=== PATIENT | female | born 1975 | race Caucasian/White ===

== ENCOUNTER 2016-06-20 11:07 | Emergency (ER) | payer OTHER ==
[2016-06-20 11:33] VITALS: BP 133/86
--- NOTE | 2016-06-21 18:21 | UC ---
Kareem Ramirez Anna[facility]20[facility]16 at 1150 . Back Pain HPI - HPI Summary HPI Summary: MD Note Vital signs stable. Temperature 98.1 Pulse ox 100. 10/10 neck pain. Nondrinker. PPD smoker for 25 years, bipolar. Nurses Note pt fell down onto concrete about 3 weeks ago and has had right sided muscle pain and spasm near crvical neck and shoulder area. pt also c/o numbness and tingling in her fingers. pt also presents with a cyst at the cervical spine she has had for 10 years and now it is beginning to hurt and would like it looked at In Room Note Patient is 40 y/o female coming to [facility] [place] presenting with sudden onset of constant BACK PAIN that began a few weeks ago. She describes the pain as throbbing, pulling, ripping pain. The pain is exacerbated by nodding her head up and down. She has a CYST ON HER NECK that hurts. She also has a SORE FINGER after jamming it in a door. The patient reports that she slipped on concrete steps a few weeks ago, which she believes may have aggravated her back. 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 Onset: sudden Palliative/Provocative: fell on concrete steps Quality: throbbing, pulling, ripping Region: back Severity: moderate Time: constant Associated Sx: neck cyst, sore finger Home Rx: None - History of Current Complaint Chief Complaint: UCBackPain Stated Complaint: CYST/PULLED MUSCLE/PINCHED NERVE Time Seen by Provider: 06/20/16 11:39 Hx Obtained From: Patient, Family/Compositor Apprentice - Accompanied by counselor at [facility] Hx Last Menstrual Period: 06/20/16 Onset/Duration: Lasting Weeks, Still Present Timing: Lasting Weeks Severity Initially: Moderate Severity Currently: Moderate - Allergies/Home Medications Allergies/Adverse Reactions: Allergies Allergy/AdvReac Type Severity Reaction Status Date / Time No Known Allergies Allergy Verified 08/29/14 10:35 Home Medications: Home Medications Atomoxetine(NF) [Strattera] 100 mg PO 06/20/16 [History] Lamotrigine [Lamictal] 150 mg PO 06/20/16 [History] Mirtazapine TAB* [Remeron TAB*] 15 mg PO BEDTIME 06/20/16 [History Confirmed 06/07] Naltrexone (NF) 50 mg 06/20/16 [History] buPROPion TAB* [Wellbutrin TAB*] 100 mg PO TID 06/20/16 [History Confirmed 06/20] cloNIDine TAB* [Catapres TAB*] 0.3 mg PO DAILY 06/20/16 [History Confirmed 06/20] PMH/Surg Hx/FS Hx/Imm Hx Endocrine History Of: Denies: Diabetes, Thyroid Disease Cardiovascular History Of: Denies: Cardiac Disorders, Hypertension, Pacemaker/ICD Respiratory History Of: Denies: COPD, Asthma GI/ History Of: Denies: Gastroesophageal Reflux, Renal Disease Neurological History Of: Denies: CVA, Dementia, Seizures Psychological History Of: Reports: Depression, Bipolar Disorder, Schizophrenia - schizoaffective d/o Other History Of: Negative For: Anticoagulant Therapy - Surgical History Surgical History: None - Family History Known Family History: Positive: Other - FHx Father alcoholism and ADHD. Mother depression and anxiety. - Social History Occupation: Disabled Alcohol Use: None Alcohol Amount: sober since 2011 Substance Use Type: None Substance Use Comment - Amount & Last Used: sober since 2011 Smoking Status (MU): Heavy Every Day Tobacco Smoker Type: Cigarettes Amount Used/How Often: 1/2 ppd Length of Time of Smoking/Using Tobacco: 25 yrs Have You Smoked in the Last Year: Yes Household Exposure Type: Cigarettes - Immunization History Most Recent Influenza Vaccination: N/A Most Recent Tetanus Shot: N/A Most Recent Pneumonia Vaccination: N/A Review of Systems Constitutional: Negative Skin: Other - cyst on neck Eyes: Negative ENT: Negative Respiratory: Negative Cardiovascular: Negative Gastrointestinal: Negative Genitourinary: Negative Motor: Negative Neurovascular: Negative Musculoskeletal: Arthralgia, Myalgia Neurological: Negative Psychological: Negative All Other Systems Reviewed And Are Negative: Yes Physical Exam Triage Information Reviewed: Yes Appearance: Well-Appearing, No Pain Distress, Well-Nourished Vital Signs: Initial Vital Signs Temp 98.1 F 06/20/16 11:27 Pulse 93 06/20/16 11:27 Resp 18 06/20/16 11:27 BP 133/86 06/20/16 11:27 Pulse Ox 100 06/20/16 11:27 Vital Signs Reviewed: Yes Eyes: Positive: Conjunctiva Clear ENT: Positive: Hearing grossly normal, Pharynx normal, TMs normal. Negative: Muffled/hoarse voice Neck: Positive: Supple, No Lymphadenopathy, Other: - 4.0 cm cyst around the level of C7, C8 to the left side of the cervical bones. Mobile and mildly red and tender. Discussed possibility that this is getting infected. Respiratory: Positive: Chest non-tender, Lungs clear, Normal breath sounds, No respiratory distress Cardiovascular: Positive: RRR, No Murmur, Other: - S1, S2 Abdomen Description: Positive: Nontender, No Organomegaly, Soft Bowel Sounds: Positive: Present Musculoskeletal: Positive: Strength Intact, Other: - SAMSON. Upon examination of ring finger right hand, she has 30 degrees of flexion and possible extensor tendon injury. Tender over trapezius muscle going to triceps on the right side. Pain both with palpation and with movement. No limitation of movement, but there is increased pain with movement. Neurological: Positive: Alert Psychological: Positive: Age Appropriate Behavior Skin: Negative: rashes Back Pain Course/Dx - Course Course Of Treatment: I discussed with patient and caregiver three separate conditions: 1.Possible extensor injury to ring finger and need for orthopedic follow up. 2.Strain to right trapezius muscle on posterior thorax and need for physical therapy in order to avoid use of narcotics. 3.A chronic cyst left paraspinal on the posterior neck that is erythematous and tender with a possible inflamed cyst or cellulitis. Dx: 1. Trapezius muscle strain 2. Possible cellulitis or inflamed cyst 3. Possible extensor tendon injury, right ring finger. Patient and caregiver understood and voice understanding and agreement. - Differential Dx/Diagnosis Provider Diagnoses: 1. Trapezius muscle strain 2. Possible cellulitis or inflamed cyst 3. Possible extensor tendon injury, right ring finger Discharge - Discharge Plan Condition: Stable Disposition: HOME Prescriptions: Cephalexin CAP* [Keflex 500 CAP*] 500 mg PO TID #30 cap Cyclobenzaprine TAB* [Flexeril TAB*] 10 mg PO BID #10 tab MDD 2 Ibuprofen TAB* [Motrin TAB* 800 MG] 400 mg PO Q8HR #14 tab Patient Education Materials: Muscle Strain (ED), Cellulitis (ED), Tendon Rupture (ED) Referrals: No Primary Care Phys,NOPCP [Primary Care Provider] - Additional Instructions: WE DISCUSSED: You have a number of conditions: 1. back muscle strain: take ibuprofen and Flexeril; physical therapy. 2. possible infected cyst: take Keflex for 7 days. 3. injury to your ring finger: follow up with orthopedics. Follow up as needed. Watch for any spreading infection, increased redness or pain. PHYSICAL THERAPY REFERRAL: This is your referral to a physical therapist. The physical therapy (PT) will help you recover. +++Reduction of Swelling (EGS, US, ice as needed) +++Pain Reduction (EGS, US, ice as needed) +++[employer] of Mobility -Your diagnosis is: strain/sprain/ RIGHT TRAPEZIUS -Duration of therapy: two weeks or until resolution of condition. -Your physician re-evaluation needs to be arranged by you. The documentation as recorded by the Kareem starr Anna accurately reflects the service I personally performed and the decisions made by me, Sanchez Muse MD.
== END 2016-06-20 12:26 | disposition home or self-care (01) ==
LOC: UCEAST 11:07
DX: S46.811A Strain of other muscles, fascia and tendons at shoulder and upper arm level, right arm, initial encounter (principal); W10.9XXA Fall (on) (from) unspecified stairs and steps, initial encounter; Y93.9 Activity, unspecified; Y92.9 Unspecified place or not applicable; L72.9 Follicular cyst of the skin and subcutaneous tissue, unspecified; F17.210 Nicotine dependence, cigarettes, uncomplicated
CPT/HCPCS: 99212; G0463

== ENCOUNTER 2016-06-25 15:15 | Emergency (ER) | payer OTHER ==
[2016-06-25] MEDS ORDERED: Ketorolac INJ* 60 MG/2 ML VIAL IM ONE (16:22)
[2016-06-25 18:56] VITALS: BP 122/74
--- NOTE | 2016-06-28 15:54 | ED ---
Skin Complaint - HPI Summary HPI Summary: Pt here w/ skin lump w/ pain, swelling and foul smelling d/c. She was seen a few days ago at and rx'd anbx. She has been applying heat and taking anbx but here today because pain and swelling are worse and discharge is concerning. Reports it feels itchy as well. Denies fever, chills, N/V/D. Neck is sore to move where lump is located, but not within neck/joints. - History of Current Complaint Chief Complaint: EDGeneral Time Seen by Provider: 06/25/16 15:49 Stated Complaint: ABSCESS ON NECK Hx Obtained From: Patient Hx Last Menstrual Period: 06/20/16 Pain Intensity: 0 Pain Scale Used: 0-10 Numeric - Allergy/Home Medications Allergies/Adverse Reactions: Allergies Allergy/AdvReac Type Severity Reaction Status Date / Time No Known Allergies Allergy Verified 08/29/14 10:35 PMH/Surg Hx/FS Hx/Imm Hx Previously Healthy: Yes Endocrine/Hematology History: Denies: Hx Anticoagulant Therapy, Hx Diabetes, Hx Thyroid Disease Cardiovascular History: Denies: Hx Hypertension, Hx Pacemaker/ICD Respiratory History: Denies: Hx Asthma, Hx Chronic Obstructive Pulmonary Disease (COPD) History: Denies: Hx Renal Disease Sensory History: Denies: Hx Cataracts, Hx Contacts or Glasses, Hx Eye Injury, Hx Eye Prosthesis, Hx Glaucoma, Hx Macular Degeneration, Hx Vision Problem, Hx Deafness , Hx Hearing Aid, Hx Hearing Problem, Other Sensory Impairments Opthamlomology History: Denies: Hx Cataracts, Hx Contacts or Glasses, Hx Eye Injury, Hx Eye Prosthesis, Hx Glaucoma, Hx Macular Degeneration, Hx Vision Problem, Other Sensory Impairments Neurological History: Denies: Hx Dementia, Hx Seizures Psychiatric History: Reports: Hx Depression, Hx Inpatient Treatment, Hx Community Mental Health Tx, Hx Schizophrenia - schizoaffective d/o, Hx Bipolar Disorder, Hx of Violent Episodes Against Others, Hx Substance Abuse, Other Psychiatric Issues/Disorders Denies: Hx Eating Disorder, Hx Suicide Attempt - Cancer History Hx Chemotherapy: No Hx Radiation Therapy: No - Immunization History Date of Tetanus Vaccine: Unk Date of Influenza Vaccine: Unk Infectious Disease History: No Infectious Disease History: Denies: Hx Clostridium Difficile, Hx Hepatitis, Hx Human Immunodeficiency Virus (HIV), Hx of Known/Suspected MRSA, Hx Shingles, Hx Tuberculosis, Hx Known/ Suspected VRE, Hx Known/Suspected VRSA, History Other Infectious Disease, Traveled Outside the [place] in Last 30 Days - Family History Known Family History: Positive: Other - FHx Father alcoholism and ADHD. Mother depression and anxiety. - Social History Alcohol Use: None Alcohol Amount: sober since 2011 Hx Substance Use: Yes Substance Use Type: Reports: Heroin Substance Use Comment - Amount & Last Used: sober since 2011 Smoking Status (MU): Current Every Day Smoker Type: Cigarettes Amount Used/How Often: 1/2 ppd Length of Time of Smoking/Using Tobacco: 25 yrs Have You Smoked in the Last Year: Yes Review of Systems Negative: Fever, Chills Negative: Chest Pain Negative: Shortness Of Breath Negative: Abdominal Pain, Vomiting, Diarrhea, Nausea Positive: no symptoms reported Negative: Arthralgia, Myalgia Skin: Other - see HPI Negative: Headache, Weakness, Paresthesia, Numbness Positive: Anxious All Other Systems Reviewed And Are Negative: Yes Physical Exam Triage Information Reviewed: Yes Vital Signs On Initial Exam: Initial Vitals Temp Pulse Resp BP Pulse Ox 99.7 F 107 16 132/81 98 06/25/16 15:26 06/25/16 15:26 06/25/16 15:26 06/25/16 15:26 06/25/16 15:26 Vital Signs Reviewed: Yes Appearance: Positive: Well-Appearing, Well-Nourished, Pain Distress Skin: Positive: Warm - 2.5cm diameter x 1cm high area of well defined nickolas erythema with multiple draining and dry pustules within - foul odor - TTP - over posterior cervical region Head/Face: Positive: Normal Head/Face Inspection - NTTP Eyes: Positive: Normal, EOMI, HASMUKH, Conjunctiva Clear. Negative: Conjunctiva Inflammed, Discharge ENT: Positive: Normal ENT inspection, Hearing grossly normal, Pharynx normal. Negative: Nasal congestion, Nasal drainage Neck: Positive: No Lymphadenopathy Respiratory/Lung Sounds: Positive: Clear to Auscultation, Breath Sounds Present Cardiovascular: Positive: Normal, RRR Abdomen Description: Positive: Nontender, Soft Musculoskeletal: Positive: Normal, Strength/ROM Intact Neurological: Positive: Normal, Sensory/Motor Intact, Alert, Oriented to Person Place, Time, CN Intact II-III Psychiatric: Positive: Normal - concerned and in pain but calm, cooperative - Faith Coma Scale Coma Scale Total: 15 Procedures - Incision and Drainage Site: posterior cervical region Anesthesia: Local - lidocaine w/ epi Instrument(s): Scalpel - #11 - 4cc purulent foul smelling d/c w/ some sebaceous and keratin-like material extracted - no nickolas sac ID'd; saline flush s/p drainage Packing: Gauze - packed w/ 1/4" sterile gauze - dressed w/ sterile gauze - pt tolerated well Diagnostics - Vital Signs Vital Signs Temp Pulse Resp BP Pulse Ox 06/25/16 18:55 98.1 F 83 16 122/74 100 06/25/16 17:00 73 111/60 99 06/25/16 16:30 81 115/66 100 06/25/16 16:00 87 106/55 99 06/25/16 15:40 101 98 06/25/16 15:38 122/66 06/25/16 15:26 99.7 F 107 16 132/81 98 - Laboratory Lab Statement: Any lab studies that have been ordered have been reviewed, and results considered in the medical decision making process. Re-Evaluation - Re-Evaluation First Eval Change: Improved - s/p toradol and again after I&D Course/Dx - Diagnoses Provider Diagnoses: Neck abscess Discharge - Discharge Plan Condition: Stable Disposition: HOME Prescriptions: Ibuprofen TAB* [Motrin TAB* 800 MG] 800 mg PO Q8HR PRN #20 tab PRN Reason: Pain Patient Education Materials: Abscess (ED) Referrals: [facility] [place] [facility] [Outside] No Primary Care Phys,NOPCP [Primary Care Provider] - Additional Instructions: Complete bactrim antibiotics per urgent care Keep dressing in place until seen by PCP or urgent care provider tomorrow to have packing changed, wound rechecked You may take ibuprofen with food as needed for pain - alternate with acetaminophen 650mg every 6 hours as needed *If you develop fever, chills, vomiting, neck pain, headache, unstoppable bleeding despite 30 minutes of pressure over wound, return to ED
--- NOTE | 2016-06-28 16:49 | ED ---
Progress - Progress Note Progress Note: Pt's cervical wound cx reveals Finegoldia Magna. She was taking keflex then bactrim. As of 06/27/2016, she was switched to Augmentin. Pt reports she's taking this now and feels much better s/p I&D of posterior cervical abscess. No fever, chills, N/V. Has had one dressing change here and plans to continue wound care as directed. She is aware of danger s/sx of when to return to ED. No further action at this time. Re-Evaluation - Re-Evaluation First Eval Change: Improved - s/p toradol and again after I&D Course/Dx - Diagnoses Provider Diagnoses: Neck abscess
== END 2016-06-25 19:28 | disposition home or self-care (01) ==
LOC: ED 15:15
DX: L02.11 Cutaneous abscess of neck (principal)
CPT/HCPCS: 10060; 87070; 87076; 87205; 87640; 87641; 96372; 99282; J1885

== ENCOUNTER 2016-06-27 15:32 | Emergency (ER) | payer OTHER ==
[2016-06-27 15:36] VITALS: BP 126/82
--- NOTE | 2016-06-27 16:27 | ED ---
ED Suture/Wound Check - HPI Summary HPI Summary: Patient had an abscess drained in this ED two days ago and here for a wound check. She has kept a bandage with antibiotic ointment over the area and is taking her antibiotics as prescribed. She denies fever, chills or increased pain. - History Of Current Complaint Chief Complaint: EDLacSutureRecheck Stated Complaint: ABSCESS Time Seen by Provider: 06/27/16 15:55 Hx Obtained From: Patient Onset/Duration: Gradual Onset Surgical Site: nape of neck Severity: Mild Pain Intensity: 2 Procedure Type: I & D Surgery Date: 06/25/16 - Allergies/Home Medications Allergies/Adverse Reactions: Allergies Allergy/AdvReac Type Severity Reaction Status Date / Time No Known Allergies Allergy Verified 08/29/14 10:35 PMH/Surg Hx/FS Hx/Imm Hx Endocrine/Hematology History: Denies: Hx Anticoagulant Therapy, Hx Diabetes, Hx Thyroid Disease Cardiovascular History: Denies: Hx Hypertension, Hx Pacemaker/ICD Respiratory History: Denies: Hx Asthma, Hx Chronic Obstructive Pulmonary Disease (COPD) History: Denies: Hx Renal Disease Sensory History: Denies: Hx Cataracts, Hx Contacts or Glasses, Hx Eye Injury, Hx Eye Prosthesis, Hx Glaucoma, Hx Macular Degeneration, Hx Vision Problem, Hx Deafness , Hx Hearing Aid, Hx Hearing Problem, Other Sensory Impairments Opthamlomology History: Denies: Hx Cataracts, Hx Contacts or Glasses, Hx Eye Injury, Hx Eye Prosthesis, Hx Glaucoma, Hx Macular Degeneration, Hx Vision Problem, Other Sensory Impairments Neurological History: Denies: Hx Dementia, Hx Seizures Psychiatric History: Reports: Hx Depression, Hx Inpatient Treatment, Hx Community Mental Health Tx, Hx Schizophrenia - schizoaffective d/o, Hx Bipolar Disorder, Hx of Violent Episodes Against Others, Hx Substance Abuse, Other Psychiatric Issues/Disorders Denies: Hx Eating Disorder, Hx Suicide Attempt - Cancer History Hx Chemotherapy: No Hx Radiation Therapy: No - Immunization History Date of Tetanus Vaccine: Unk Date of Influenza Vaccine: Unk Infectious Disease History: No Infectious Disease History: Denies: Hx Clostridium Difficile, Hx Hepatitis, Hx Human Immunodeficiency Virus (HIV), Hx of Known/Suspected MRSA, Hx Shingles, Hx Tuberculosis, Hx Known/ Suspected VRE, Hx Known/Suspected VRSA, History Other Infectious Disease, Traveled Outside the [place] in Last 30 Days - Family History Known Family History: Positive: Other - FHx Father alcoholism and ADHD. Mother depression and anxiety. - Social History Occupation: Unemployed Lives: With Family Alcohol Use: None Alcohol Amount: sober since 2011 Substance Use Type: Reports: None Substance Use Comment - Amount & Last Used: sober since 2011 Smoking Status (MU): Heavy Every Day Tobacco Smoker Type: Cigarettes Amount Used/How Often: 1/2 ppd Length of Time of Smoking/Using Tobacco: 25 yrs Have You Smoked in the Last Year: Yes Cessation Counseling: Patient Advised to Stop Review of Systems Negative: Fever, Chills Positive: Other - .5 cm opening with 2cm erythema without active drainage All Other Systems Reviewed And Are Negative: Yes Physical Exam Triage Information Reviewed: Yes Vital Signs On Initial Exam: Initial Vitals Temp Pulse Resp BP Pulse Ox 98.4 F 99 20 126/82 99 06/27/16 15:33 06/27/16 15:33 06/27/16 15:33 06/27/16 15:33 06/27/16 15:33 Vital Signs Reviewed: Yes Appearance: Positive: Well-Appearing, Well-Nourished, Pain Distress Skin: Positive: Warm, Skin Color Reflects Adequate Perfusion, Dry, Tender, Soft , Erythema @ - .5 cm opening with 2cm erythema without active drainage Head/Face: Positive: Normal Head/Face Inspection Eyes: Positive: EOMI, HASMUKH, Conjunctiva Clear ENT: Positive: Hearing grossly normal Neck: Positive: Supple, Nontender, No Lymphadenopathy Respiratory/Lung Sounds: Positive: Breath Sounds Present Cardiovascular: Positive: RRR Musculoskeletal: Negative: Edema Left, Edema Right Neurological: Positive: Sensory/Motor Intact, Alert, Oriented to Person Place, Time, NV Bundle Intact Distally, Normal Gait Psychiatric: Positive: Affect/Mood Appropriate AVPU Assessment: Alert - Faith Coma Scale Coma Scale Total: 15 Diagnostics - Vital Signs Vital Signs Temp Pulse Resp BP Pulse Ox 06/27/16 15:33 98.4 F 99 20 126/82 99 - Laboratory Lab Statement: Any lab studies that have been ordered have been reviewed, and results considered in the medical decision making process. Course/Dx - Course Course Of Treatment: The packing was removed from the area and redressed with dry clean gauze. She will return for a wound check in 3 days. - Differential Diagnoses Differential Diagnoses: Abscess, Cellulitis, Dehiscence, Healing Wound, Hematoma , Suture Removal, Other - Clinical Impression Provider Diagnoses: Healing wound Discharge - Discharge Plan Condition: Stable Disposition: HOME Prescriptions: Amoxicillin/Clavulanate TAB* [Augmentin TAB 875*] 875 mg PO BID #20 tab diPHENhydraMINE PO* [Benadryl PO 25 MG TAB*] 25 mg PO TID PRN #60 tab PRN Reason: Itching Patient Education Materials: Abscess Incision and Drainage (ED) Referrals: No Primary Care Phys,NOPCP [Primary Care Provider] - [facility] [place] [facility] [Outside] Additional Instructions: Please return to the emergency department or convenient care for a wound check in 3 days. You can keep your wound open to air or covered with clean gauze. Wash daily with warm soapy water (in the shower is okay) and pat dry. Stop taking Keflex and begin using the augmentin, and take until it is completely gone. Return to the emergency department if symptoms worsen.
== END 2016-06-27 16:29 | disposition home or self-care (01) ==
LOC: ED 15:32
DX: L02.11 Cutaneous abscess of neck (principal)
CPT/HCPCS: 99281

== ENCOUNTER 2017-07-10 11:28 | Inpatient (IN) | payer BC ==
[2017-07-10 12:34] LABS: ABS Basophils 0.1 10^3/ul (0-0.2); ABS Eosinophils 0.1 10^3/ul (0-0.6); ABS Lymphocytes 1.3 10^3/ul (1.0-4.8); ABS Monocytes 0.7 10^3/ul (0-0.8); ABS Neutrophils 4.4 10^3/ul (1.5-7.7); ABS Nucleated RBC 0 10^3/ul; Eosinophil % 1.2 % (0-6); Hematocrit 44 % (35-47); Hemoglobin 14.7 g/dl (12.0-16.0); Lymphocyte % 19.8 % (25-47); Mean Corpuscular HGB Conc 33 g/dl (31-36); Mean Corpuscular Hemoglobin 30 pg (27-31); Mean Corpuscular Volume 91 fL (80-97); Mean Platelet Volume 7.6 um3 (7.4-10.4); Nucleated Red Blood Cells % 0; Platelet Count 328 10^3/ul (150-450); Red Blood Count 4.85 10^6/ul (4.0-5.4); Red Cell Distribution Width 14 % (10.5-15); White Blood Count 6.6 10^3/ul (3.5-10.8)
[2017-07-10 12:49] LABS: EGFR Non-African American 67.6 (>60)
[2017-07-10] MEDS ORDERED: Mouth Piece, Nicotine* 1 EACH CARTRIDGE INH ONE (15:50)
[2017-07-10] MEDS ORDERED: Nicotine Inhaler* 10 MG AMP INH ONE (15:50)
[2017-07-10] MEDS ORDERED: Mouth Piece, Nicotine* 1 EACH CARTRIDGE ONE (15:58)
[2017-07-10] MEDS ORDERED: Haloperidol INJ IV/IM* 5 MG/ML AMP IM ONE (18:32)
[2017-07-10] MEDS ORDERED: LORazepam INJ* 2 MG/ML 1 ML VIAL IM ONE (18:32)
[2017-07-10] MEDS ORDERED: diPHENhydraMINE IV* 50 MG/ML 1 ml VIAL (BENADRYL) IM ONE (18:32)
[2017-07-10 20:51] LABS: Urine Appearance Cloudy; Urine Blood 3+ (Negative); Urine Color Yellow; Urine Ketones Negative (Negative); Urine Protein Negative (Negative); Urine Red Blood Cell 3+(>10/hpf) (Absent); Urine Specific Gravity 1.012 (1.010-1.030); Urine Urobilinogen Negative (Negative); Urine White Blood Cell 3+(>20/hpf) (Absent)
--- NOTE | 2017-07-10 22:45 | ED ---
Castro Ramirez Jennifer, scribed for Bill Puckett MD on 07/10/17 at 1211 . Psychiatric Complaint - HPI Summary HPI Summary: The patient is a 41 year old female who was brought 945 to the ED for mental health today. The patient reports her schizophrenia has been acting up with worsening delusions and talking to God. The patient denies drug use and alcohol use. She states she has been to the ED 5 or 6 times before for this. - History Of Current Complaint Chief Complaint: EDMentalHealth Time Seen by Provider: 07/10/17 11:45 Hx Obtained From: Patient Hx Last Menstrual Period: 06/20/16 ?: Yes Onset/Duration: Sudden Onset, Still Present Timing: Frequency Of Episodes Severity Initially: Mild Severity Currently: None Aggravating Factor(s): Nothing Alleviating Factor(s): Nothing Associated Signs And Symptoms: Positive: Hallucinating - Delusions, talking to God Related History: Positive For: Prior Psychiatric Issues Has Suicidal: Denies: Thoughts, With A Plan Has Homicidal: Denies: Thoughts, With A Plan - Allergies/Home Medications Allergies/Adverse Reactions: Allergies Allergy/AdvReac Type Severity Reaction Status Date / Time No Known Allergies Allergy Verified 08/29/14 10:35 Home Medications: Home Medications NK [No Home Medications Reported] 07/10/17 [History Confirmed 07/10/17] PMH/Surg Hx/FS Hx/Imm Hx Endocrine/Hematology History: Denies: Hx Anticoagulant Therapy, Hx Diabetes, Hx Thyroid Disease Cardiovascular History: Denies: Hx Hypertension, Hx Pacemaker/ICD Respiratory History: Denies: Hx Asthma, Hx Chronic Obstructive Pulmonary Disease (COPD) History: Denies: Hx Renal Disease Sensory History: Denies: Hx Cataracts, Hx Contacts or Glasses, Hx Eye Injury, Hx Eye Prosthesis, Hx Glaucoma, Hx Macular Degeneration, Hx Vision Problem, Hx Deafness , Hx Hearing Aid, Hx Hearing Problem, Other Sensory Impairments Opthamlomology History: Denies: Hx Cataracts, Hx Contacts or Glasses, Hx Eye Injury, Hx Eye Prosthesis, Hx Glaucoma, Hx Macular Degeneration, Hx Vision Problem, Other Sensory Impairments Neurological History: Denies: Hx Dementia, Hx Seizures Psychiatric History: Reports: Hx Depression, Hx Inpatient Treatment, Hx Community Mental Health Tx, Hx Schizophrenia - schizoaffective d/o, Hx Bipolar Disorder, Hx of Violent Episodes Against Others, Hx Substance Abuse, Other Psychiatric Issues/Disorders Denies: Hx Eating Disorder, Hx Suicide Attempt - Cancer History Hx Chemotherapy: No Hx Radiation Therapy: No - Immunization History Date of Tetanus Vaccine: Unk Date of Influenza Vaccine: Unk Infectious Disease History: No Infectious Disease History: Denies: Hx Clostridium Difficile, Hx Hepatitis, Hx Human Immunodeficiency Virus (HIV), Hx of Known/Suspected MRSA, Hx Shingles, Hx Tuberculosis, Hx Known/ Suspected VRE, Hx Known/Suspected VRSA, History Other Infectious Disease, Traveled Outside the [place] in Last 30 Days - Family History Known Family History: Positive: Other - FHx Father alcoholism and ADHD. Mother depression and anxiety. - Social History Alcohol Use: None Alcohol Amount: sober since 2011 Substance Use Type: Reports: None Substance Use Comment - Amount & Last Used: sober since 2011 Smoking Status (MU): Heavy Every Day Tobacco Smoker Type: Cigarettes Amount Used/How Often: 1/2 ppd Length of Time of Smoking/Using Tobacco: 25 yrs Have You Smoked in the Last Year: Yes Review of Systems Negative: Fever Positive: Other - Delusions, "talking to God" All Other Systems Reviewed And Are Negative: Yes Physical Exam - Summary Physical Exam Summary: General: well-appearing, no pain distress Skin: warm, color reflects adequate perfusion, dry Head: normal Eyes: EOMI, HASMUKH ENT: normal Neck: supple, nontender Respiratory: CTA, breath sounds present Cardiovascular: RRR Abdomen: soft, nontender Bowel: present Musculoskeletal: normal, strength/ROM intact Neurological: normal, sensory/motor intact, A&O x3 Psychological: affect/mood appropriate Triage Information Reviewed: Yes Vital Signs On Initial Exam: Initial Vitals Temp Pulse Resp BP Pulse Ox 98.4 F 105 18 121/67 99 07/10/17 11:35 07/10/17 11:35 07/10/17 11:35 07/10/17 11:35 07/10/17 11:35 Vital Signs Reviewed: Yes Diagnostics - Vital Signs Vital Signs Temp Pulse Resp BP Pulse Ox 07/10/17 11:35 98.4 F 105 18 121/67 99 - Laboratory Lab Results: Lab Results 07/10/17 07/10/17 07/10/17 Range/Units 12:19 12:19 20:38 WBC 6.6 (3.5-10.8) 10^3/ul RBC 4.85 (4.0-5.4) 10^6/ul Hgb 14.7 (12.0-16.0) g/dl Hct 44 (35-47) % MCV 91 (80-97) fL MCH 30 (27-31) pg MCHC 33 (31-36) g/dl RDW 14 (10.5-15) % Plt Count 328 (150-450) 10^3/ul MPV 7.6 (7.4-10.4) um3 Neut % (Auto) 67.3 (38-83) % Lymph % (Auto) 19.8 L (25-47) % Bledsoe % (Auto) 10.8 H (0-7) % Eos % (Auto) 1.2 (0-6) % Baso % (Auto) 0.9 (0-2) % Absolute Neuts (auto) 4.4 (1.5-7.7) 10^3/ul Absolute Lymphs (auto) 1.3 (1.0-4.8) 10^3/ul Absolute Monos (auto) 0.7 (0-0.8) 10^3/ul Absolute Eos (auto) 0.1 (0-0.6) 10^3/ul Absolute Basos (auto) 0.1 (0-0.2) 10^3/ul Absolute Nucleated RBC 0 10^3/ul Nucleated RBC % 0 Sodium 139 (133-145) mmol/L Potassium 3.9 (3.5-5.0) mmol/L Chloride 104 (101-111) mmol/L Carbon Dioxide 30 (22-32) mmol/L Anion Gap 5 (2-11) mmol/L BUN 5 L (6-24) mg/dL Creatinine 0.92 (0.51-0.95) mg/dL Est GFR ( Amer) 86.9 (>60) Est GFR (Non-Af Amer) 67.6 (>60) BUN/Creatinine Ratio 5.4 L (8-20) Glucose 89 (70-100) mg/dL Calcium 9.4 (8.6-10.3) mg/dL Total Bilirubin 0.40 (0.2-1.0) mg/dL AST 13 (13-39) U/L ALT 12 (7-52) U/L Alkaline Phosphatase 56 (34-104) U/L Total Protein 6.8 (6.4-8.9) g/dL Albumin 4.3 (3.2-5.2) g/dL Globulin 2.5 (2-4) g/dL Albumin/Globulin Ratio 1.7 (1-3) TSH 1.69 (0.34-5.60) mcIU/mL Beta HCG, Quant Pending Urine Color Urine Appearance Urine pH (5-9) Ur Specific Moneta (1.010-1.030) Urine Protein (Negative) Urine Ketones (Negative) Urine Blood (Negative) Urine Nitrate (Negative) Urine Bilirubin (Negative) Urine Urobilinogen (Negative) Ur Leukocyte Esterase (Negative) Urine WBC (Auto) (Absent) Urine RBC (Auto) (Absent) Ur Squamous Epith Cells (Absent) Urine Bacteria (Absent) Urine Glucose (Negative) Salicylates < 2.50 (<30) mg/dL Urine Opiates Screen None detected (None Detect) Acetaminophen < 15 mcg/mL Ur Barbiturates Screen None detected (None Detect) Ur Phencyclidine Scrn None detected (None Detect) Ur Amphetamines Screen None detected (None Detect) U Benzodiazepines Scrn None detected (None Detect) Urine Cocaine Screen None detected (None Detect) U Cannabinoids Screen None detected (None Detect) Serum Alcohol < 10 (<10) mg/dL 07/10/17 Range/Units 20:38 WBC (3.5-10.8) 10^3/ul RBC (4.0-5.4) 10^6/ul Hgb (12.0-16.0) g/dl Hct (35-47) % MCV (80-97) fL MCH (27-31) pg MCHC (31-36) g/dl RDW (10.5-15) % Plt Count (150-450) 10^3/ul MPV (7.4-10.4) um3 Neut % (Auto) (38-83) % Lymph % (Auto) (25-47) % Bledsoe % (Auto) (0-7) % Eos % (Auto) (0-6) % Baso % (Auto) (0-2) % Absolute Neuts (auto) (1.5-7.7) 10^3/ul Absolute Lymphs (auto) (1.0-4.8) 10^3/ul Absolute Monos (auto) (0-0.8) 10^3/ul Absolute Eos (auto) (0-0.6) 10^3/ul Absolute Basos (auto) (0-0.2) 10^3/ul Absolute Nucleated RBC 10^3/ul Nucleated RBC % Sodium (133-145) mmol/L Potassium (3.5-5.0) mmol/L Chloride (101-111) mmol/L Carbon Dioxide (22-32) mmol/L Anion Gap (2-11) mmol/L BUN (6-24) mg/dL Creatinine (0.51-0.95) mg/dL Est GFR ( Amer) (>60) Est GFR (Non-Af Amer) (>60) BUN/Creatinine Ratio (8-20) Glucose (70-100) mg/dL Calcium (8.6-10.3) mg/dL Total Bilirubin (0.2-1.0) mg/dL AST (13-39) U/L ALT (7-52) U/L Alkaline Phosphatase (34-104) U/L Total Protein (6.4-8.9) g/dL Albumin (3.2-5.2) g/dL Globulin (2-4) g/dL Albumin/Globulin Ratio (1-3) TSH (0.34-5.60) mcIU/mL Beta HCG, Quant Urine Color Yellow Urine Appearance Cloudy Urine pH 8.0 (5-9) Ur Specific Moneta 1.012 (1.010-1.030) Urine Protein Negative (Negative) Urine Ketones Negative (Negative) Urine Blood 3+ A (Negative) Urine Nitrate Negative (Negative) Urine Bilirubin Negative (Negative) Urine Urobilinogen Negative (Negative) Ur Leukocyte Esterase Trace A (Negative) Urine WBC (Auto) 3+(>20/hpf) A (Absent) Urine RBC (Auto) 3+(>10/hpf) A (Absent) Ur Squamous Epith Cells Present A (Absent) Urine Bacteria Absent (Absent) Urine Glucose Negative (Negative) Salicylates (<30) mg/dL Urine Opiates Screen (None Detect) Acetaminophen mcg/mL Ur Barbiturates Screen (None Detect) Ur Phencyclidine Scrn (None Detect) Ur Amphetamines Screen (None Detect) U Benzodiazepines Scrn (None Detect) Urine Cocaine Screen (None Detect) U Cannabinoids Screen (None Detect) Serum Alcohol (<10) mg/dL Result Diagrams: 07/10/17 12:19 07/10/17 12:19 Lab Statement: Any lab studies that have been ordered have been reviewed, and results considered in the medical decision making process. Course/Dx - Course Course Of Treatment: FINAL DISPOSITION PENDING AT SHIFT CHANGE. SIGNED OUT TO DR CHILDRESS. - Differential Dx/Clinical Impression Provider Diagnosis: Mental health problem Discharge - Sign-Out/Discharge Documenting (check all that apply): Sign-Out Patient Signing out patient TO: Kaushik Childress - pending mental health evaluation - Discharge Plan Referrals: No Primary Care Phys,NOPCP [Primary Care Provider] - The documentation as recorded by the Castro starr Jennifer accurately reflects the service I personally performed and the decisions made by me, Bill Puckett MD.
[2017-07-11] MEDS ORDERED: Acetaminophen TAB* 325 MG PO PRN (01:54)
[2017-07-11] MEDS ORDERED: Al Hydrox/Mg Hydrox/Simet LIQ* 30 ML UDC PO PRN (01:54)
[2017-07-11] MEDS: Vitamin THERAPEUTIC TAB PO SCH (09:37)
[2017-07-11] MEDS: Nicotine Inhaler* 10 MG AMP INH PRN ×2 (11:51→19:47)
[2017-07-11] MEDS: Mouth Piece, Nicotine* 1 EACH CARTRIDGE INH SCH (11:51)
[2017-07-11] MEDS ORDERED: ARIPIPRAZOLE 300 MG IM SCH (15:00)
[2017-07-11] MEDS ORDERED: [UNRECOGNIZED DRUG - OTHER] IM SCH (16:00)
[2017-07-11] MEDS: ARIPiprazole TAB* 5 MG PO SCH (16:47)
[2017-07-11] MEDS: Nicotine PATCH 21 MG/24 HR* PATCH TRANSDERM SCH (16:52)
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
[2017-07-11] MEDS: Sulfamethox/Trimethoprim DS 800/160* TAB PO SCH (21:27)
[2017-07-11] MEDS: Divalproex ER TAB(*) 500 MG PO SCH (21:27)
[2017-07-11] MEDS: Nicotine Patch Removal NOTE PATCH OFF SCH (21:53)
[2017-07-11] MEDS ORDERED: chlorproMAZINE TAB* 50 MG PO ONE (22:00)
[2017-07-12] MEDS: LORazepam TAB(*) 1 MG PO PRN ×2 (03:15→17:30)
[2017-07-12] MEDS: Haloperidol TAB* 5 MG PO PRN (03:15)
[2017-07-12] MEDS: Nicotine PATCH 21 MG/24 HR* PATCH TRANSDERM SCH (10:41)
[2017-07-12] MEDS: Sulfamethox/Trimethoprim DS 800/160* TAB PO SCH ×2 (10:41→21:25)
[2017-07-12] MEDS: Vitamin THERAPEUTIC TAB PO SCH (10:41)
[2017-07-12] MEDS: ARIPiprazole TAB* 5 MG PO SCH (10:41)
[2017-07-12] MEDS: Nicotine Inhaler* 10 MG AMP INH PRN ×2 (10:44→17:30)
--- NOTE | 2017-07-12 12:02 | PN ---
Subjective - Subjective Date of Service: 07/12/17 Service Type: 04223 Hosp care 25 min moderate complexity Subjective: This 41 y/o WF with long h/o mental illness and noncomplience with treatments admitted on [facility] due to acute irritable-manic and psychotic behavior in the community. On the unit she continues to be psychotic with alevism themes, extremely hostile, threatening towards her peers, shouting at staffs, demanding to be discharged back to her home when she is homeless and uses frequent profanity( F words). She required stat meds over her routine PRNs. Very difficult to engage in any meaningful conversations. Objective - Appearance Appearance: Healthy Appearing Dysmorphic Features: No Hygiene: Mal-odorous Grooming: Disheveled - Behavior Psychomotor Activities: Abnormal-Increased Exhibits Abnormal Movement: No - Attitude and Relatedness Attitude and Relatedness: Hostile Eye Contact: Poor - Speech Quality: Pressured Latencies: Short Quantity: Copious - Mood Patient's Decription of Mood: "Angry" - Affect Observed Affect: Tense Affect Consistent with: Dysphoria - Thought Process Patient's Thought Process: Disorganized, Loose Associations, Filght of Ideas Thought Content: Yes Paranoid Ideation, No Passive Wish, No Suicidal Planning, No Homicidal Ideation - Sensorium Experiencing Hallucinations: No, Sensorium is Clear Type of Hallucinations: Visual: No, Auditory: No, Command: No - Level of Consciousness Level of Consciousness: Alert Orientation: Yes Orientated to Place, Yes Orientated to Person, No Orientated to Time - Impulse Control Impulse Control: Impaired - Insight and Judgement Insight and Judgement: Impaired - Group Participation Particating in Group Activities: No - Medication Management Medication Management Adherence: Yes Assessment - Assessment Merits Inpatient Hospitalization: For Immediate Safety, For Stabilization Clinical Impression: 41 y/o WF acutely manic and psychotic. Plan - Plan Treatment Plan: Name: SHIRLEY PERALTA Birthdate: 1975 [id number] Continued Medication Management: Continue Outpt Medication Medications: Current Medications Acetaminophen (Tylenol Tab*) 650 mg PO Q4H PRN PRN Reason: PAIN or TEMP > 101 F Last Admin: 07/11/17 19:47 Dose: 650 mg Al Hydrox/Mg Hydrox/Simethicone (Maalox Plus*) 30 ml PO Q4H PRN PRN Reason: INDIGESTION Aripiprazole (Abilify Tab*) 5 mg PO DAILY [facility] Last Admin: 07/12/17 10:41 Dose: 5 mg Aripiprazole (Abilify Maintena (Nf)) 400 mg IM Q28D [facility] Last Admin: 07/11/17 17:02 Dose: 400 mg Device (Nicotine Mouth Piece*) 1 each INH .CARTRIDGE [facility] Last Admin: 07/11/17 11:51 Dose: 1 each Divalproex Sodium (Depakote Er Tab(*)) 1,000 mg PO BEDTIME [facility] Last Admin: 07/11/17 21:27 Dose: 1,000 mg Haloperidol (Haldol Tab*) 5 mg PO Q4H PRN PRN Reason: AGITATION Last Admin: 07/12/17 03:15 Dose: 5 mg Lorazepam (Ativan Tab(*)) 2 mg PO Q4H PRN PRN Reason: AGITATION Last Admin: 07/12/17 03:15 Dose: 2 mg Multivitamins (Theragran Tab*) 1 tab PO DAILY [facility] Last Admin: 07/12/17 10:41 Dose: 1 tab Nicotine (Nicotine Inhaler*) 10 mg INH Q2H PRN PRN Reason: CRAVING Last Admin: 07/12/17 10:44 Dose: 10 mg Nicotine (Nicotine Patch 21 Mg/24 Hr*) 1 patch TRANSDERM DAILY [facility] Last Admin: 07/12/17 10:41 Dose: 1 patch Nicotine Polacrilex (Nicotine Gum*) 2 mg PO Q2H PRN PRN Reason: CRAVING Pharmacy Profile Note (Nicotine Patch Removal Note*) 1 note PATCH OFF 2100 [facility] Last Admin: 07/11/17 21:53 Dose: 1 note Trimethoprim/Sulfamethoxazole (Bactrim Ds 800/160 Tab*) 1 tab PO BID [facility] Last Admin: 07/12/17 10:41 Dose: 1 tab - Discharge Plan Discharge Plan: Outpatient Follow Up Outpatient Program: [facility]
[2017-07-12] MEDS: Nicotine GUM* 2 MG PO PRN (17:30)
[2017-07-12] MEDS: Divalproex ER TAB(*) 500 MG PO SCH (21:26)
[2017-07-12] MEDS: Nicotine Patch Removal NOTE PATCH OFF SCH (21:31)
[2017-07-13] MEDS: Sulfamethox/Trimethoprim DS 800/160* TAB PO SCH ×2 (10:29→21:30)
[2017-07-13] MEDS: ARIPiprazole TAB* 5 MG PO SCH (10:29)
[2017-07-13] MEDS: Vitamin THERAPEUTIC TAB PO SCH (10:29)
[2017-07-13] MEDS: Nicotine PATCH 21 MG/24 HR* PATCH TRANSDERM SCH (10:30)
[2017-07-13] MEDS: Nicotine Inhaler* 10 MG AMP INH PRN ×2 (10:30→16:21)
[2017-07-13] MEDS: Mouth Piece, Nicotine* 1 EACH CARTRIDGE INH SCH (10:32)
[2017-07-13] MEDS: Haloperidol TAB* 5 MG PO PRN (15:04)
[2017-07-13] MEDS: LORazepam TAB(*) 1 MG PO PRN (15:05)
[2017-07-13] MEDS: Nicotine GUM* 2 MG PO PRN (16:21)
[2017-07-13] MEDS: Divalproex ER TAB(*) 500 MG PO SCH (21:30)
[2017-07-13] MEDS: Nicotine Patch Removal NOTE PATCH OFF SCH (21:31)
[2017-07-14] MEDS: Sulfamethox/Trimethoprim DS 800/160* TAB PO SCH ×2 (08:51→21:10)
[2017-07-14] MEDS: Nicotine PATCH 21 MG/24 HR* PATCH TRANSDERM SCH (08:52)
[2017-07-14] MEDS: Vitamin THERAPEUTIC TAB PO SCH (08:52)
[2017-07-14] MEDS: ARIPiprazole TAB* 5 MG PO SCH (08:52)
[2017-07-14] MEDS: Nicotine Inhaler* 10 MG AMP INH PRN ×2 (08:54→21:21)
[2017-07-14] MEDS ORDERED: Ibuprofen TAB* 600 MG PO PRN (11:09)
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
[2017-07-14] MEDS: Haloperidol TAB* 5 MG PO PRN (18:09)
[2017-07-14] MEDS: LORazepam TAB(*) 1 MG PO PRN (18:09)
[2017-07-14] MEDS ORDERED: Haloperidol INJ IV/IM* 5 MG/ML AMP IM ONE (19:18)
[2017-07-14] MEDS ORDERED: LORazepam INJ* 2 MG/ML 1 ML VIAL ONE ×2 (19:18→19:23)
[2017-07-14] MEDS ORDERED: Haloperidol INJ IV/IM* 5 MG/ML AMP ONE ×2 (19:18→19:23)
[2017-07-14] MEDS ORDERED: LORazepam INJ* 2 MG/ML 1 ML VIAL IM ONE (19:18)
[2017-07-14] MEDS ORDERED: Benztropine INJ* 1 MG/ML 2 ML AMP ONE ×2 (19:19→19:24)
[2017-07-14] MEDS ORDERED: Benztropine INJ* 1 MG/ML 2 ML AMP IM ONE (19:19)
[2017-07-14] MEDS: lamoTRIgine TAB(*) 25 MG PO SCH (21:10)
[2017-07-14] MEDS: Divalproex ER TAB(*) 500 MG PO SCH (21:10)
[2017-07-14] MEDS: Nicotine Patch Removal NOTE PATCH OFF SCH (21:24)
[2017-07-15] MEDS ORDERED: Mouth Piece, Nicotine* 1 EACH CARTRIDGE ONE (05:20)
[2017-07-15] MEDS: Mouth Piece, Nicotine* 1 EACH CARTRIDGE INH SCH (05:22)
[2017-07-15] MEDS: Nicotine Inhaler* 10 MG AMP INH PRN ×3 (05:22→19:40)
[2017-07-15] MEDS: Nicotine PATCH 21 MG/24 HR* PATCH TRANSDERM SCH ×2 (06:16→08:29)
[2017-07-15] MEDS: Vitamin THERAPEUTIC TAB PO SCH ×2 (06:16→08:29)
[2017-07-15] MEDS: ARIPiprazole TAB* 5 MG PO SCH ×2 (06:16→08:29)
[2017-07-15] MEDS: Sulfamethox/Trimethoprim DS 800/160* TAB PO SCH ×3 (06:16→21:20)
[2017-07-15] MEDS: Nicotine GUM* 2 MG PO PRN ×2 (15:28→19:40)
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
[2017-07-15] MEDS: LORazepam TAB(*) 1 MG PO PRN (19:40)
[2017-07-15] MEDS ORDERED: Benztropine TAB* 1 MG ONE (19:46)
[2017-07-15] MEDS: Divalproex ER TAB(*) 500 MG PO SCH (21:20)
[2017-07-15] MEDS: lamoTRIgine TAB(*) 25 MG PO SCH (21:20)
[2017-07-15] MEDS: Haloperidol TAB* 5 MG PO PRN (21:24)
[2017-07-15] MEDS: Nicotine Patch Removal NOTE PATCH OFF SCH (21:44)
[2017-07-16] MEDS: Nicotine GUM* 2 MG PO PRN (01:05)
[2017-07-16] MEDS: Nicotine Inhaler* 10 MG AMP INH PRN (01:05)
[2017-07-16] MEDS: ARIPiprazole TAB* 5 MG PO SCH (08:35)
[2017-07-16] MEDS: Nicotine PATCH 21 MG/24 HR* PATCH TRANSDERM SCH (08:35)
[2017-07-16] MEDS: Sulfamethox/Trimethoprim DS 800/160* TAB PO SCH ×2 (08:36→20:34)
[2017-07-16] MEDS: Vitamin THERAPEUTIC TAB PO SCH (08:36)
[2017-07-16] MEDS: LORazepam TAB(*) 1 MG PO PRN ×2 (12:42→18:06)
--- NOTE | 2017-07-16 15:10 | PN ---
Subjective - Subjective Service Type: 64991 Hosp care 15 min low complexity Subjective: Patient met with ACT this morning. She is agreeable to remain on [facility] for stabilization. She is calm and in behavioral control. Patient reports some insight into delusional statements made in the past few days. Patient has been medication and group compliant. She requests 30min observation and use of comfort room. Patient informed that treatment team will discuss in AM. Objective - Appearance Appearance: Thin Framed Dysmorphic Features: No Hygiene: Normal Grooming: Fairly Well Kept - Behavior Psychomotor Activities: Normal Exhibits Abnormal Movement: No - Attitude and Relatedness Attitude and Relatedness: Cooperative Eye Contact: Good - Speech Quality: Unpressured Latencies: Normal Quantity: Appropriate - Mood Patient's Decription of Mood: "Good" - Affect Observed Affect: Non-labile Affect Consistent with: Euthymia - Thought Process Patient's Thought Process: Coherent, Goal Directed Thought Content: No Passive Wish, No Suicidal Planning, No Homicidal Ideation, No Paranoid Ideation - Sensorium Experiencing Hallucinations: No, Sensorium is Clear Type of Hallucinations: Visual: No, Auditory: No, Command: No - Level of Consciousness Level of Consciousness: Alert Orientation: Yes Intact, Yes Orientated to Time, Yes Orientated to Place, Yes Orientated to Person - Impulse Control Impulse Control: Tenuous - Insight and Judgement Insight and Judgement: Fair - Group Participation Particating in Group Activities: Yes - Medication Management Medication Management Adherence: Yes Assessment - Assessment Merits Inpatient Hospitalization: For Immediate Safety, For Stabilization, Consolidate Improvements, Pending Safe DC Plan Inpatient DSM-V Dx: F25.0 Clinical Impression: 41yo white female with history of schizoaffective d/o and polysubstance use. She presented to ED in agitated and psychotic state and demanding aripiprazole maintenna injection. She continues to present as manic. She merits hospitalization for immediate safety and stabilization. Plan - Plan Treatment Plan: Name: SHIRLEY PERALTA Birthdate: 1975 [id number] continue acute intensive psychiatric treatment. received abilify maintenna on ; continue po aripiprazole [id number]. Continue depakote and repeat V.A. level on 07/17. discharge planning to include case management and ACT team. Continued Medication Management: Start Medication Medications: Current Medications Acetaminophen (Tylenol Tab*) 650 mg PO Q4H PRN PRN Reason: PAIN or TEMP > 101 F Last Admin: 07/11/17 19:47 Dose: 650 mg Al Hydrox/Mg Hydrox/Simethicone (Maalox Plus*) 30 ml PO Q4H PRN PRN Reason: INDIGESTION Aripiprazole (Abilify Maintena (Nf)) 400 mg IM Q28D [facility] Last Admin: 07/11/17 17:02 Dose: 400 mg Aripiprazole (Abilify Tab*) 10 mg PO DAILY [facility] Last Admin: 07/16/17 08:35 Dose: 10 mg Device (Nicotine Mouth Piece*) 1 each INH .CARTRIDGE [facility] Last Admin: 07/15/17 05:22 Dose: 1 each Divalproex Sodium (Depakote Er Tab(*)) 1,500 mg PO BEDTIME [facility] Last Admin: 07/15/17 21:20 Dose: 1,500 mg Haloperidol (Haldol Tab*) 5 mg PO Q4H PRN PRN Reason: AGITATION Last Admin: 07/15/17 21:24 Dose: 5 mg Ibuprofen (Motrin Tab*) 600 mg PO Q6H PRN PRN Reason: PAIN Lamotrigine (Lamictal Tab(*)) 25 mg PO BEDTIME [facility] Last Admin: 07/15/17 21:20 Dose: 25 mg Lorazepam (Ativan Tab(*)) 2 mg PO Q4H PRN PRN Reason: AGITATION Last Admin: 07/16/17 12:42 Dose: 2 mg Multivitamins (Theragran Tab*) 1 tab PO DAILY [facility] Last Admin: 07/16/17 08:36 Dose: 1 tab Nicotine (Nicotine Inhaler*) 10 mg INH Q2H PRN PRN Reason: CRAVING Last Admin: 07/16/17 01:05 Dose: 10 mg Nicotine (Nicotine Patch 21 Mg/24 Hr*) 1 patch TRANSDERM DAILY [facility] Last Admin: 07/16/17 08:35 Dose: 1 patch Nicotine Polacrilex (Nicotine Gum*) 2 mg PO Q2H PRN PRN Reason: CRAVING Last Admin: 07/16/17 01:05 Dose: 2 mg Pharmacy Profile Note (Nicotine Patch Removal Note*) 1 note PATCH OFF 2100 [facility] Last Admin: 07/15/17 21:44 Dose: Not Given Trimethoprim/Sulfamethoxazole (Bactrim Ds 800/160 Tab*) 1 tab PO BID [facility] Last Admin: 07/16/17 08:36 Dose: 1 tab - Discharge Plan Discharge Plan: Outpatient Follow Up Outpatient Program: [facility]
[2017-07-16] MEDS: lamoTRIgine TAB(*) 25 MG PO SCH (20:34)
[2017-07-16] MEDS: Divalproex ER TAB(*) 500 MG PO SCH (20:34)
[2017-07-16] MEDS: Nicotine Patch Removal NOTE PATCH OFF SCH (20:36)
[2017-07-17] MEDS: Mouth Piece, Nicotine* 1 EACH CARTRIDGE INH SCH (05:30)
[2017-07-17] MEDS: LORazepam TAB(*) 1 MG PO PRN ×2 (05:31→16:20)
[2017-07-17] MEDS: Nicotine Inhaler* 10 MG AMP INH PRN ×3 (05:31→20:25)
[2017-07-17] MEDS: Nicotine GUM* 2 MG PO PRN ×2 (05:31→16:20)
[2017-07-17] MEDS: ARIPiprazole TAB* 5 MG PO SCH ×2 (05:51→07:27)
[2017-07-17] MEDS: Nicotine PATCH 21 MG/24 HR* PATCH TRANSDERM SCH (09:19)
[2017-07-17] MEDS: Sulfamethox/Trimethoprim DS 800/160* TAB PO SCH ×2 (09:20→20:25)
[2017-07-17] MEDS: Vitamin THERAPEUTIC TAB PO SCH (09:21)
[2017-07-17] MEDS: lamoTRIgine TAB(*) 25 MG PO SCH (20:25)
[2017-07-17] MEDS: Divalproex ER TAB(*) 500 MG PO SCH (20:25)
[2017-07-17] MEDS: Nicotine Patch Removal NOTE PATCH OFF SCH (20:28)
--- NOTE | 2017-07-18 08:20 | ED ---
Donato Ramirez Stephanie, scribed for Kaushik Gruber MD on 07/10/17 at 2258 . Progress - Progress Note Progress Note: The pt is accepted for admission into [facility] by Dr. Turner at 24:25. - Consult/PCP Time Called: 14:50 Course/Dx - Course Course Of Treatment: FINAL DISPOSITION PENDING AT SHIFT CHANGE. SIGNED OUT TO DR GRUBER. - Diagnoses Provider Diagnoses: Mental health problem, Schizophrenia, Mood disorder Discharge - Sign-Out/Discharge Documenting (check all that apply): Receiving Sign-Out Receiving patient FROM: Bill Puckett - Discharge Plan Condition: Stable Disposition: ADMITTED TO [facility] - Billing Disposition and Condition Condition: STABLE Disposition: [facility] The documentation as recorded by the Donato starr Stephanie accurately reflects the service I personally performed and the decisions made by Yasmani reynolds Omari A, MD.
[2017-07-18] MEDS: Nicotine PATCH 21 MG/24 HR* PATCH TRANSDERM SCH (11:21)
[2017-07-18] MEDS: ARIPiprazole TAB* 5 MG PO SCH (11:21)
[2017-07-18] MEDS: Sulfamethox/Trimethoprim DS 800/160* TAB PO SCH ×2 (11:21→20:47)
[2017-07-18] MEDS: Vitamin THERAPEUTIC TAB PO SCH (11:21)
[2017-07-18] MEDS: lamoTRIgine TAB(*) 25 MG PO SCH (11:39)
--- NOTE | 2017-07-18 13:01 | PN ---
<Joana Marks - Last Filed: 07/18/17 12:51> Subjective - Subjective Service Type: [id number] Hosp care 15 min low complexity Subjective: Shirley asks for her Lamotrigine to be given during the day, states she feels i will help her control her "teenage s... fits". Cooperative today, she agreed to sign VICENTE so that her father and step mother can be contacted, she also agrees to repeat of urine screen. Asks to be d/c today, accepted information that she would not be discharged today nor thru the weekend. Remains manic with increased motor activity and hyperverbal. Objective - Appearance Appearance: Thin Framed Dysmorphic Features: Yes Hygiene: Mal-odorous Grooming: Disheveled - Behavior Psychomotor Activities: Abnormal-Increased Exhibits Abnormal Movement: Yes - Attitude and Relatedness Attitude and Relatedness: Cooperative Eye Contact: Poor - Speech Quality: Pressured Latencies: Short Quantity: Copious - Mood Patient's Decription of Mood: "Okay" - Affect Observed Affect: Labile Affect Consistent with: Euphoria - Thought Process Patient's Thought Process: Goal Directed Thought Content: No Passive Wish, No Suicidal Planning, No Homicidal Ideation, No Paranoid Ideation - Sensorium Experiencing Hallucinations: No, Sensorium is Clear Type of Hallucinations: Visual: No, Auditory: No, Command: No - Level of Consciousness Level of Consciousness: Agitated Orientation: Yes Intact, Yes Orientated to Time, Yes Orientated to Place, Yes Orientated to Person - Impulse Control Impulse Control: Poor - Insight and Judgement Insight and Judgement: Poor - Group Participation Particating in Group Activities: No - Medication Management Medication Management Adherence: Yes Assessment - Assessment Merits Inpatient Hospitalization: Consolidate Improvements, For Discharge Planning Inpatient DSM-V Dx: F25.0 Clinical Impression: 41 yo white female with history of schizoaffective d/o and polysubstance abuse. Presented to ED in agitated and psychotic state demanding an Aripiprazole maintena injection. She continues to present as manic. Merits continued hospitalization for immediate safety and consolidation of improvements. Plan - Plan Treatment Plan: Name: SHIRLEY PERALTA Birthdate: 1975 [id number] Medications: Current Medications Acetaminophen (Tylenol Tab*) 650 mg PO Q4H PRN PRN Reason: PAIN or TEMP > 101 F Last Admin: 07/11/17 19:47 Dose: 650 mg Al Hydrox/Mg Hydrox/Simethicone (Maalox Plus*) 30 ml PO Q4H PRN PRN Reason: INDIGESTION Aripiprazole (Abilify Maintena (Nf)) 400 mg IM Q28D [facility] Last Admin: 07/11/17 17:02 Dose: 400 mg Aripiprazole (Abilify Tab*) 10 mg PO DAILY [facility] Last Admin: 07/18/17 11:21 Dose: 10 mg Device (Nicotine Mouth Piece*) 1 each INH .CARTRIDGE [facility] Last Admin: 07/17/17 05:30 Dose: 1 each Divalproex Sodium (Depakote Er Tab(*)) 1,500 mg PO BEDTIME [facility] Last Admin: 07/17/17 20:25 Dose: 1,500 mg Haloperidol (Haldol Tab*) 5 mg PO Q4H PRN PRN Reason: AGITATION Last Admin: 07/15/17 21:24 Dose: 5 mg Ibuprofen (Motrin Tab*) 600 mg PO Q6H PRN PRN Reason: PAIN Lamotrigine (Lamictal Tab(*)) 25 mg PO DAILY [facility] Last Admin: 07/18/17 11:39 Dose: 25 mg Lorazepam (Ativan Tab(*)) 2 mg PO Q4H PRN PRN Reason: AGITATION Last Admin: 07/17/17 16:20 Dose: 2 mg Multivitamins (Theragran Tab*) 1 tab PO DAILY [facility] Last Admin: 07/18/17 11:21 Dose: 1 tab Nicotine (Nicotine Inhaler*) 10 mg INH Q2H PRN PRN Reason: CRAVING Last Admin: 07/17/17 20:25 Dose: 10 mg Nicotine (Nicotine Patch 21 Mg/24 Hr*) 1 patch TRANSDERM DAILY [facility] Last Admin: 07/18/17 11:21 Dose: 1 patch Nicotine Polacrilex (Nicotine Gum*) 2 mg PO Q2H PRN PRN Reason: CRAVING Last Admin: 07/17/17 16:20 Dose: 2 mg Pharmacy Profile Note (Nicotine Patch Removal Note*) 1 note PATCH OFF 2100 [facility] Last Admin: 07/17/17 20:28 Dose: Not Given Trimethoprim/Sulfamethoxazole (Bactrim Ds 800/160 Tab*) 1 tab PO BID [facility] Last Admin: 07/18/17 11:21 Dose: 1 tab <Haleigh Concepcion - Last Filed: 07/18/17 16:01> Subjective - Subjective Subjective: above note reviewed and discussed with student. schmitz NPP Plan - Plan Treatment Plan: Name: SHIRLEY PERALTA Birthdate: 1975 [id number] continue acute intensive psychiatric treatment. decrease to q30min observation to allow comfort room use. patient may not have staff pass due to request for court. court pending 07/23 at 10:30am Continued Medication Management: Start Medication Medications: Current Medications Acetaminophen (Tylenol Tab*) 650 mg PO Q4H PRN PRN Reason: PAIN or TEMP > 101 F Last Admin: 07/11/17 19:47 Dose: 650 mg Al Hydrox/Mg Hydrox/Simethicone (Maalox Plus*) 30 ml PO Q4H PRN PRN Reason: INDIGESTION Aripiprazole (Abilify Maintena (Nf)) 400 mg IM Q28D [facility] Last Admin: 07/11/17 17:02 Dose: 400 mg Aripiprazole (Abilify Tab*) 10 mg PO DAILY [facility] Last Admin: 07/18/17 11:21 Dose: 10 mg Device (Nicotine Mouth Piece*) 1 each INH .CARTRIDGE [facility] Last Admin: 07/17/17 05:30 Dose: 1 each Divalproex Sodium (Depakote Er Tab(*)) 1,500 mg PO BEDTIME [facility] Last Admin: 07/17/17 20:25 Dose: 1,500 mg Haloperidol (Haldol Tab*) 5 mg PO Q4H PRN PRN Reason: AGITATION Last Admin: 07/15/17 21:24 Dose: 5 mg Ibuprofen (Motrin Tab*) 600 mg PO Q6H PRN PRN Reason: PAIN Lamotrigine (Lamictal Tab(*)) 25 mg PO DAILY [facility] Last Admin: 07/18/17 11:39 Dose: 25 mg Lorazepam (Ativan Tab(*)) 2 mg PO Q4H PRN PRN Reason: AGITATION Last Admin: 07/17/17 16:20 Dose: 2 mg Multivitamins (Theragran Tab*) 1 tab PO DAILY [facility] Last Admin: 07/18/17 11:21 Dose: 1 tab Nicotine (Nicotine Inhaler*) 10 mg INH Q2H PRN PRN Reason: CRAVING Last Admin: 07/17/17 20:25 Dose: 10 mg Nicotine (Nicotine Patch 21 Mg/24 Hr*) 1 patch TRANSDERM DAILY [facility] Last Admin: 07/18/17 11:21 Dose: 1 patch Nicotine Polacrilex (Nicotine Gum*) 2 mg PO Q2H PRN PRN Reason: CRAVING Last Admin: 07/17/17 16:20 Dose: 2 mg Pharmacy Profile Note (Nicotine Patch Removal Note*) 1 note PATCH OFF 2099 [facility] Last Admin: 07/17/17 20:28 Dose: Not Given Trimethoprim/Sulfamethoxazole (Bactrim Ds 800/160 Tab*) 1 tab PO BID [facility] Last Admin: 07/18/17 11:21 Dose: 1 tab - Discharge Plan Discharge Plan: Outpatient Follow Up Outpatient Program: [facility]
[2017-07-18 13:44] LABS: Urine Appearance Cloudy; Urine Blood Negative (Negative); Urine Color Amber; Urine Ketones Trace (Negative); Urine Protein 1+(30 mg/dL) (Negative); Urine Red Blood Cell 3+(>10/hpf) (Absent); Urine Specific Gravity 1.017 (1.010-1.030); Urine Urobilinogen Negative (Negative); Urine White Blood Cell 3+(>20/hpf) (Absent)
[2017-07-18] MEDS: LORazepam TAB(*) 1 MG PO PRN ×2 (16:30→20:49)
[2017-07-18] MEDS: Nicotine Inhaler* 10 MG AMP INH PRN (16:31)
[2017-07-18] MEDS: Divalproex ER TAB(*) 500 MG PO SCH (20:47)
[2017-07-18] MEDS: Nicotine Patch Removal NOTE PATCH OFF SCH (21:49)
[2017-07-19] MEDS: Nicotine PATCH 21 MG/24 HR* PATCH TRANSDERM SCH (07:29)
[2017-07-19] MEDS: Sulfamethox/Trimethoprim DS 800/160* TAB PO SCH ×2 (07:30→21:13)
[2017-07-19] MEDS: ARIPiprazole TAB* 5 MG PO SCH (07:30)
[2017-07-19] MEDS: LORazepam TAB(*) 1 MG PO PRN ×3 (07:31→18:41)
[2017-07-19] MEDS: lamoTRIgine TAB(*) 25 MG PO SCH (07:31)
[2017-07-19] MEDS: Vitamin THERAPEUTIC TAB PO SCH (07:31)
[2017-07-19] MEDS: Nicotine Inhaler* 10 MG AMP INH PRN ×3 (07:32→18:42)
[2017-07-19] MEDS: Nicotine GUM* 2 MG PO PRN (14:34)
[2017-07-19] MEDS: Mouth Piece, Nicotine* 1 EACH CARTRIDGE INH SCH (18:42)
[2017-07-19] MEDS: Divalproex ER TAB(*) 500 MG PO SCH (21:13)
[2017-07-19] MEDS: Nicotine Patch Removal NOTE PATCH OFF SCH (21:16)
[2017-07-20] MEDS: Nicotine PATCH 21 MG/24 HR* PATCH TRANSDERM SCH (08:36)
[2017-07-20] MEDS: ARIPiprazole TAB* 5 MG PO SCH (08:37)
[2017-07-20] MEDS: lamoTRIgine TAB(*) 25 MG PO SCH (08:38)
[2017-07-20] MEDS: Vitamin THERAPEUTIC TAB PO SCH (08:38)
[2017-07-20] MEDS: Sulfamethox/Trimethoprim DS 800/160* TAB PO SCH ×2 (08:38→20:03)
[2017-07-20] MEDS: LORazepam TAB(*) 1 MG PO PRN ×2 (13:55→18:11)
[2017-07-20] MEDS: Mouth Piece, Nicotine* 1 EACH CARTRIDGE INH SCH (13:55)
[2017-07-20] MEDS: Nicotine Inhaler* 10 MG AMP INH PRN ×2 (13:55→18:11)
[2017-07-20] MEDS: Nicotine GUM* 2 MG PO PRN (13:55)
[2017-07-20] MEDS: Divalproex ER TAB(*) 500 MG PO SCH (20:04)
[2017-07-20] MEDS: Nicotine Patch Removal NOTE PATCH OFF SCH (20:07)
[2017-07-21 08:00] VITALS: BP 101/68
[2017-07-21] MEDS: ARIPiprazole TAB* 5 MG PO SCH (09:20)
[2017-07-21] MEDS: Nicotine Inhaler* 10 MG AMP INH PRN (09:20)
[2017-07-21] MEDS: Sulfamethox/Trimethoprim DS 800/160* TAB PO SCH (09:21)
[2017-07-21] MEDS: Vitamin THERAPEUTIC TAB PO SCH (09:21)
[2017-07-21] MEDS: lamoTRIgine TAB(*) 25 MG PO SCH (09:21)
[2017-07-21] MEDS: Nicotine PATCH 21 MG/24 HR* PATCH TRANSDERM SCH (09:22)
--- NOTE | 2017-07-21 11:11 | PN ---
[facility]: Group Therapy Note - Service Type Service Type: [id number] Group Psychotherapy - Cognitive Behavioral Group Therapy ( CBT):Patient was attentive and participatory in CBT programming this morning, and remained in good behavioral control. Patient expressed positive insights regarding relevant treatment interventions and goals.
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
== END 2017-07-21 15:13 | disposition home or self-care (01) | DRG 750 ==
LOC: ED 11:28 → BSU 07-11 01:34
PROVIDERS: ADMIT Psychiatry & Neurology Psychiatry; ATTEND Psychiatry & Neurology Psychiatry
DX: F25.0 Schizoaffective disorder, bipolar type (principal); N39.0 Urinary tract infection, site not specified; F17.210 Nicotine dependence, cigarettes, uncomplicated; F19.11 Other psychoactive substance abuse, in remission; Z79.899 Other long term (current) drug therapy; Z81.1 Family history of alcohol abuse and dependence
CPT/HCPCS: 36415; 80053; 80061; 80164; 80175; 80307; 80320; 80329; 81003; 81015; 83036; 84443; 84702; 85025; 87077; 87086; 87186; 90853; 93005; 99222; 99231; 99232; 99238; 99283; A9270-GY; G0480; J0515; J1200; J1630; J2060